=== PATIENT | male | born 1990 | race Hispanic/Latino ===

== ENCOUNTER 2022-06-29 07:55 | Outpatient (CLI) | payer BC ==
[2022-06-29] MEDS ORDERED: Iopamidol 370 76% 100 ML VIAL ONE (15:56)
== END 2022-06-29 07:56 | disposition home or self-care (01) ==
LOC: CT 07:55
PROVIDERS: ATTEND Nurse Practitioner Family
DX: K21.9 Gastro-esophageal reflux disease without esophagitis (principal); K59.01 Slow transit constipation; R10.9 Unspecified abdominal pain; K64.8 Other hemorrhoids
CPT/HCPCS: 74178; Q9967